=== PATIENT | male | born 1995 | race Caucasian/White ===

== ENCOUNTER 2017-01-21 00:23 | Emergency (ER) | payer OTHER ==
[~2017-01-21] VITALS: Ht 185.4 cm; Wt 85.0 kg
[2017-01-21 00:31] VITALS: TEMP 36.8; Ht 185.4 cm; Wt 85.0 kg
[2017-01-21 00:52] VITALS: O2SAT 94
[2017-01-21 01:18] LABS: BUN/CREATININE RATIO 13.1 (10-20); CALCIUM 8.7 mg/dl (8.5-10.1); CREATININE 0.91 mg/dl (0.60-1.40); POTASSIUM 3.1 mmol/L (3.5-5.1)
--- NOTE | 2017-01-21 03:02 | EMERGENCY ROOM VISIT NOTE ---
History Report prepared by Alan: Hina Clay Under the Supervision of: Dr. Colette Nguyen D.O. First contact with patient: 00:27 Chief Complaint: ALCOHOL OVERDOSE Stated Complaint: ALCOHOL OVERDOSE Nursing Triage Summary: arrived via amb with bls from [facility] after police observed him stumbling around pt is from [place]. History of Present Illness The patient is a 21 year old male who presents to the Emergency Room with complaints of an episode of alcohol overdose occurring tonight. Per police, the patient was found staggering the road, but did not fall. The patient states he only drank 3-4 beers. He denies getting hurt, drinking other liquor, abdominal pain, chest pain, and headache. HPI limited secondary to alcohol intoxication. Source of History: patient, police History Limited By: intoxication Onset: tonight Position: other (global) Quality: other (global) Timing: other (episode) Associated Symptoms: No headache, No chest pain, No abdominal pain Note: The patient denies getting hurt. Review of Systems Pt denies headache, change in vision, fevers, chest pain, shortness of breath, nausea, vomiting, diarrhea, pain with urination, and melena. Past Medical & Surgical Medical Problems: (1) No Known Active Medical Problems Family History No pertinent family history Social History Smoking Status: Never Smoker Alcohol Use: occasionally Marital Status: single Housing Status: lives with roommate Occupation Status: [employer] student Current/Historical Medications No Active Prescriptions or Reported Meds Allergies Coded Allergies: No Known Allergies (Unverified , 01/21/17) Physical Exam Vital Signs Date Time Temp Pulse Resp B/P (MAP) Pulse Ox O2 Delivery O2 Flow Rate FiO2 01/21/17 07:28 107 20 140/71 95 Room Air 01/21/17 07:15 82 01/21/17 06:24 99 20 132/74 95 Room Air 01/21/17 05:20 104 18 109/88 100 Room Air 01/21/17 04:15 74 01/21/17 03:52 71 18 125/83 95 Room Air 01/21/17 02:23 88 18 125/83 95 Room Air 01/21/17 01:09 99 18 134/67 100 Room Air 01/21/17 00:52 94 Room Air 01/21/17 00:34 98 01/21/17 00:31 97 Room Air 01/21/17 00:31 36.8 118 18 141/56 96 Room Air Physical Exam GENERAL: alert, well appearing, well nourished, no distress, faint smell of alcohol EYE EXAM: normal conjunctiva, PERRL and EOM's grossly intact OROPHARYNX: no exudate, no erythema, lips, buccal mucosa, and tongue normal and mucous membranes are moist NECK: supple, no nuchal rigidity, no adenopathy, non-tender LUNGS: Clear to auscultation. Normal chest wall mechanics no wheezes/rhonchi/ rales, no step-off or crepitus to the chest wall HEART: no murmurs, S1 normal and S2 normal ABDOMEN: abdomen soft, non-tender, normo-active bowel sounds, no masses, no rebound or guarding. No evidence of trauma. BACK: Back is symmetrical on inspection and no midline tenderness, no CVA tenderness. SKIN: no rashes and no bruising UPPER EXTREMITIES: upper extremities are grossly normal. Normal pulses, full range of motion, no deformities noted. No evidence of trauma. LOWER EXTREMITIES: No pitting edema. Normal pulses, full range of motion, no deformities noted. No evidence of trauma. NEURO EXAM: Normal sensorium, cranial nerves II-XII grossly intact, normal speech, no gross weakness of arms, no gross weakness of legs. Medical Decision & Procedures Laboratory Results 01/21/17 00:37 Test 01/21/17 00:37 Anion Gap 8.0 mmol/L (3-11) Est Creatinine Clear Calc Drug Dose 147.5 ml/min Estimated GFR () 141.1 Estimated GFR (Non- 121.7 BUN/Creatinine Ratio 13.1 (10-20) Calcium Level 8.7 mg/dl (8.5-10.1) Ethyl Alcohol mg/dL 227.0 mg/dl (0-3) Laboratory results per my review. Medications Administered Medications (Trade) Dose Ordered Sig/Tash Route Start Time Stop Time Status Last Admin Dose Admin Potassium Chloride (Klor-Con M10) 40 meq NOW STAT PO 01/21/17 06:56 01/21/17 06:57 DC 01/21/17 07:27 40 MEQ ED Course 0036: The patient was evaluated in room B12A. A complete history and physical exam was performed. 0656: Ordered Potassium Chloride 40 meq. 0658: Upon reevaluation, the patient is feeling better. I discussed the findings and the treatment plan with the patient. He verbalizes agreement and understanding. The patient was discharged home. Medical Decision Etiologies such as alcohol intoxication, toxicologic, infection, hypoglycemia, electrolyte abnormalities, cardiac sources, intracerebral event, neurologic, as well as others were entertained. No history to suggest trauma. Patient monitored her for several hours as a precaution. Patient sobered up without incident. Upon reevaluation had no complaints, repeat exam was without any new or concerning findings. Cautioned patient on appropriate use of alcohol, symptoms to watch and return for, adequate hydration, he verbalized understanding was agreeable with plan. I have a low suspicion for any additional occult traumatic injury. Doubt occult infectious etiology. Patient's potassium was repleted and he was given instruction on hypokalemia. Impression Primary Impression: Alcoholic intoxication Additional Impression: Hypokalemia Scribe Attestation The scribe's documentation has been prepared under my direction and personally reviewed by me in its entirety. I confirm that the note above accurately reflects all work, treatment, procedures, and medical decision making performed by me. Departure Information Dispostion Home / Self-Care Prescriptions No Active Prescriptions or Reported Meds Referrals No Doctor, Assigned (PCP) Forms HOME CARE DOCUMENTATION FORM, IMPORTANT VISIT INFORMATION Patient Instructions My [facility] Additional Instructions Please drink responsibly in a safe location. Do not drink and drive. Please drink clear liquids today. Please make sure that your regularly taking in foods rich in potassium such as orange juice and bananas. If you have any new or concerning symptoms, please return the emergency room. Problem Qualifiers Primary Impression: Alcoholic intoxication Complication of substance-induced condition: uncomplicated Qualified Codes: F10.920 - Alcohol use, unspecified with intoxication, uncomplicated
[2017-01-21] MEDS ORDERED: POTASSIUM CHLORIDE 10 MEQ TABCR PO STA (06:56)
[2017-01-21 07:28] VITALS: BP 140/71; PULSE 107; O2SAT 95
== END 2017-01-21 07:38 | disposition home or self-care (01) ==
LOC: EDBD 00:23 → C.EDB 00:24
DX: F10.920 Alcohol use, unspecified with intoxication, uncomplicated (principal); E87.6 Hypokalemia; Y90.7 Blood alcohol level of 200-239 mg/100 ml